=== PATIENT | female | born 1945 | race Caucasian/White ===

== ENCOUNTER → 2019-05-30 | Outpatient (CLI) | payer OTHER ==
[~2019-05-30] MED LIST: ACCURETIC 20-11 EACH PO; ALEVE220 MG; APAP500 PO; ASPIRIN325 PO; BIOTIN10000 MC1 PO; CALCIUM 600 +1 EAC5; CALCIUM-MAGNES1 EAC6 PO; CELEBREX 200 M200 MG PO; CO Q10200 MG PO; COLACE100 MG; DESYREL100 MG PO; DICLOFENAC SOD50 M1 PO; FISH OIL 1,001000 M2 PO; FLUZONE 2045 MCG/011; LEXAPRO 10 MG T10 MG PO; METOPROLOL SUCC50 MG PO; MOBIC15 MG PO; NEURONTIN 300300 M1 PO; NEXIUM40 MG PO; NORCO 5-325 TA1 EACH PO; NORVASC 5 MG TAB5 MG PO; OSTEO BI-FLEX1 EAC1 PO; PNEUMOVAX25 MCG/0.5; PRAVACHOL20 MG PO; PRAVASTATIN SOD10 MG; SLEEP AID25 MG PO; STOOL SOFTENER1 EAC2 PO; SUPER B COMPLE150 MG PO; TIZANIDINE PO; TOPROL XL50 MG; TRAMADOL 50 MG50 MG PO; TRAZODONE HCL50 MG PO; TYLENOL325 MG; VICODIN 5-3001 EACH PO; VICODIN 5-5001 EACH PO; VITAMIN D31000 UNI2 PO; WOMEN'S BIOMUL1 EAC1; XARELTO10 MG PO; ZANAFLEX4 MG; ZOLOFT100 MG
== END ==
LOC: M.RAD 09:45
DX: Z12.31 Encounter for screening mammogram for malignant neoplasm of breast (principal)